=== PATIENT | male | born 1975 | race Caucasian/White ===

== ENCOUNTER 2016-06-19 09:48 | Day surgery (SDC) | payer OTHER ==
[~2016-06-19] VITALS: Ht 167.6 cm; Wt 112.3 kg
[~2016-06-19 09:48] MED LIST: LACTATED RINGERS 1,000 ML IV ONE; OXYMETAZOLINE 0.05% NASAL SPRAY (AFRIN) 15 ML BTL ONE; SODIUM CHLORIDE FLUSH 3 ML SYR ONE
--- OUTSIDE RECORDS SUMMARY | 2016-06-19 09:52 | XMS REPORT | Summary of Care ---
Author Author Tamica Garcia, Edgar Pham Organization Unknown Address Unknown Phone Unavailable Care Team Providers Care [place] [facility] Name Role Phone Vero Davey M.D. 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 Medications Name Dates Details Azelastine HCl - 0.15 % Nasal Solution Refills: 0 Start -Apr-2016 Active Fluticasone Propionate 50 MCG/ACT Nasal Suspension Refills: 0 Start -Apr-2016 Active Allergies and Adverse Reactions Name Dates Details No Known Drug Allergies (Allergy) Status: Active Procedures Procedure Dates Details History of Prior Surgical Procedure Not Done Procedures not documented Immunization Name Dates Details Immunizations not documented Family History Name Dates Details Family history of cardiac disorder (V17.49, Z82.49) Comments: Family History Status: Active Family history of hyperlipidemia (V18.19, Z83.49) Comments: Family History Status: Active Family history of hypertension (V17.49, Z82.49) Comments: Family History Status: Active Name Dates Details Family history of No significant past medical history Status: Active Social History Name Dates Details - Status: Name Dates Details Never smoker Vital Signs Date Test Result Details 21-May-2016 10:01 Heart Rate 60 /min Status: Comments: Location: ; Weight 250 lb Status: Results Date Description Value Details 21-May-2016 14:55 PROTIME PANEL 7000 PROTIME 12.5 secs Range: 12.0-14.9 INR 0.97 14:56 PTT 7500 PTT 30.4 secs Range: 23.0-34.7 15:03 CBC w/ Auto Diff 7150 WBC 7.0 K/uL Range: 4.5-11.0 RBC 5.30 mil/uL Range: 4.20-5.40 HGB 15.5 g/dL Range: 14.0-18.0 HCT 46.9 % Range: 42.0-53.0 MCV 88.6 fL Range: 80.0-99.0 MCH 29.3 pg Range: 27.3-32.5 MCHC 33.1 % Range: 32.0-36.0 RDW 14.5 % Range: 11.6-14.8 PLATELETS 241 K/uL Range: 150-400 MPV 7.8 fL Range: 6.0-11.0 %NEUTRO 57.3 % Range: 37.0-80.0 %LYMPHS 29.5 % Range: 13.0-50.0 %MONO 6.4 % Range: 0.0-12.0 %EOS 3.4 % Range: 0.0-7.0 %BASO 0.3 % Range: 0.0-2.5 %STAN 2.9 % Range: 0.0-5.0 NEUTRO 4.0 K/uL Range: 2.0-6.9 LYMPHS 2.1 K/uL Range: 0.6-3.4 MONOS 0.5 K/uL Range: 0.0-0.9 EOS 0.2 K/uL Range: 0.0-0.7 BASO 0.0 K/uL Range: 0.0-0.2 Plan of Care Name Dates Details Planned Observations Planned Goals not documented Planned Encounters Appointment; Provider: Edgar Davey M.D. On 27-Jun-2016 08:45 Appointment; Provider: Edgar Davey M.D. On 19-Jun-2016 09:00 Interventions Provided Labs/Procedures/ImagingCBC w/ Auto Diff 7150; Done: May 21 2016 10:57AMPROTIME PANEL 7000; Done: May 21 2016 10:57AMPTT 7500; Done: May 21 2016 10:57AM Instructions Name Dates Details Instructions not documented Encounters Appointment; Edgar Davey M.D. Encounter Diagnosis: Problem not documented On 21-May-2016 09:45
[2016-06-19] MEDS ORDERED: LIDOCAINE/EPINEPHRINE 1% 1:100,000 (XYLOCAINE) 30 ML VIAL INJ ONE (10:13)
[2016-06-19] MEDS ORDERED: OXYMETAZOLINE 0.05% NASAL SPRAY (AFRIN) 15 ML BTL ONE (10:13)
[2016-06-19] MEDS ORDERED: BACITRACIN/POLYMYXIN OINTMENT 28.35 GM TUBE TOP ONE (10:19)
[2016-06-19] MEDS ORDERED: MUPIROCIN 2% OINT 22 GM (BACTROBAN) TUBE TOP ONE (10:22)
[2016-06-19] MEDS ORDERED: OXYMETAZOLINE 0.05% NASAL SPRAY (AFRIN) 15 ML BTL SCH (10:35)
[2016-06-19] MEDS ORDERED: SODIUM CHLORIDE FLUSH 3 ML SYR IV SCH (10:35)
[2016-06-19] MEDS ORDERED: LACTATED RINGERS 1,000 ML IV SCH (10:35)
[2016-06-19] MEDS ORDERED: ALFENTANIL 500 MCG/ML (ALFENTA) 5 ML AMP IV ONE (11:15)
[2016-06-19] MEDS ORDERED: SUCCINYLCHOLINE 20 MG/ML 10 ML VIAL ONE (11:15)
[2016-06-19] MEDS ORDERED: PROPOFOL 20 ML IV ONE (11:15)
[2016-06-19] MEDS ORDERED: ePHEDrine SULFATE 50 MG/ML 1 ML AMP ONE (12:56)
[2016-06-19] MEDS ORDERED: TRIAMCINOLONE ACET 40 MG/ML (KENALOG-40) 1 ML VIAL ONE (13:14)
[2016-06-19 14:04] VITALS: BP 129/87
[2016-06-19] MEDS ORDERED: ONDANSETRON 2 MG/ML (Z0FRAN) 2 ML VIAL IV PRN (14:15)
[2016-06-19] MEDS ORDERED: ACETAMINOPHEN/CODEINE 300MG/30 MG (TYLENOL #3) TABLET PO PRN (14:15)
[2016-06-19 14:26] VITALS: BP 152/97
[2016-06-19 14:44] VITALS: BP 144/88
[2016-06-19] MEDS ORDERED: HYPERTONIC SALINE IRRIGATION 1000 ML BTL IR SCH (21:00)
--- NOTE | 2016-06-21 09:46 | OPERATIVE REPORT ---
DATE OF OPERATION: 06/19/2016 [facility] NO.: [id number] PRE-OPERATIVE DIAGNOSES: 1. Nasal septal deviation, left. 2. Bilateral inferior turbinate hypertrophy. 3. Middle turbinate sherif bullosa, right. POST-OPERATIVE DIAGNOSES: 1. Nasal septal deviation, left. 2. Bilateral inferior turbinate hypertrophy. 3. Middle turbinate sherif bullosa, right. OPERATIVE PROCEDURE: 1. Septoplasty. 2. Left partial inferior turbinate reduction. 3. Right partial inferior turbinate reduction. 4. Endoscopic division of sherif bullosa, right. SURGEON: Edgar Davey MD ANESTHESIA: General endotracheal INDICATION: This is a 41-year-old male with a history of nasal airway obstruction. OPERATIVE FINDINGS: Small to moderate size sherif bullosa of the right middle turbinate, left-sided nasal septal deviation with bone spur and large inferior turbinates bilaterally. OPERATIVE NOTE: Following informed consent the patient was taken to the operating room and placed in the supine position. Satisfactory general endotracheal anesthesia was obtained. He was prepped for surgery with Afrin Nasal [place] and 1% lidocaine with epinephrine. SEPTOPLASTY: A left sided hemitransfixion incision was performed followed by elevation of a mucoperichondrial flap. The cartilage knife was used to incise the cartilage and elevate a contralateral mucoperichondrial flap followed by removal of a portion of the quadrilateral cartilage using the swivel knife. The inferior aspect of the perpendicular plate of the ethmoid was trimmed with the Joseph double action rongeur and a bone spur from posterior was removed with the Jonathan forceps. This allowed the flaps to swing back to the midline. Morselized cartilage were replaced between flaps and sutured with 4-0 plain gut suture in a mattress fashion. The hemitransfixion incision was closed with a 4-0 chromic suture. LEFT PARTIAL INFERIOR TURBINATE REDUCTION: The inferior turbinate was shaved along its inferior and lateral edge again with the suction microdebrider and with a polyp forceps. Electrocautery was used for hemostasis along the inferior edge of the lower turbinate. Afrin pack was placed along the floor of the nose. RIGHT PARTIAL INFERIOR TURBINATE REDUCTION: The inferior turbinate was shaved along its inferior and lateral edge again with the suction microdebrider and with a polyp forceps. Electrocautery was used for hemostasis along the inferior edge of the lower turbinate. Afrin pack was placed along the floor of the nose. ENDOSCOPIC DIVISION OF SHERIF BULLOSA: The right middle turbinate was endoscopically evaluated using a 0-degree 4-mm telescope. The middle turbinate had a sherif bullosa and this was divided laterally with the turbinate scissors and suction microdebrider, removing the lateral half of the sherif bullosa. This opened the middle meatus widely and allowed for much better airway. Next the middle turbinates were sutured to the midline using a [id number] 4-0 Vicryl suture in a mattress fashion. This medialized the middle turbinates and opened up the nose widely. Both sides of the nose were again irrigated with saline and suctioned until clear. Afrin packs were placed along the floor of the nose and in the middle meatus. The patient was awakened and taken to the recovery room in good condition.
== END 2016-06-19 15:06 | disposition home or self-care (01) ==
LOC: ASC 09:48
PROVIDERS: ATTEND Otolaryngology
DX: J34.2 Deviated nasal septum (principal); J34.3 Hypertrophy of nasal turbinates; J34.89 Other specified disorders of nose and nasal sinuses
CPT/HCPCS: 30140; 30520; J0330; J3301